=== PATIENT | female | born 1960 | race American Indian/Alaskan Native ===

== ENCOUNTER 2016-12-15 11:57 | Outpatient (CLI) | payer OTHER ==
--- NOTE | 2016-12-15 14:51 | XRay Report ---
PARANASAL SINUSES: History: Sinus congestion. Multiple views of the paranasal sinuses demonstrate normal formation with no abnormal mucoperiosteal thickening or fluid levels. The bony han are intact. IMPRESSION: Normal study.
--- NOTE | 2016-12-15 15:03 | XRay Report ---
CHEST 2 VIEWS INDICATION: Cough. COMPARISON: None similar. FINDINGS: PA and lateral chest radiographs demonstrate normal cardiomediastinal silhouette. Right hemidiaphragm slightly elevated with minimal right lung base crowded markings/atelectasis/scarring. No pleural effusions or CHF. Mild thoracic spine degenerative changes. CONCLUSION: No significant acute chest process, as described. Thank you for the opportunity to participate in this patient's care.
== END 2016-12-15 11:58 | disposition home or self-care (01) ==
LOC: SPVIMAG 11:57
PROVIDERS: ATTEND Internal Medicine Hematology & Oncology
DX: M47.894 Other spondylosis, thoracic region (principal); J98.11 Atelectasis; Q79.1 Other congenital malformations of diaphragm
CPT/HCPCS: 70220; 71020

== ENCOUNTER 2017-02-02 11:19 | Outpatient (CLI) | payer OTHER ==
--- NOTE | 2017-02-02 14:47 | Mammography Report ---
BONE DEXA:02/02/17 11:19:00 CLINICAL: Postmenopausal. No comparison. TECHNIQUE: Two site bone DEXA performed on an Hologic scanner. FINDINGS: The average BMD of the lumbar spine L1-L4 is 1.146g/cm squared with a T-score of 0 and a Z-score of +1.4. The average BMD of the left hip is 1.092g/cm squared with a T-score of +0.4 and a Z-score of +1.1. However, the femoral neck BMD BMD is 0.759g/cm squared with a T score of -1.3 and a Z score of -0.4 IMPRESSION: 1. WHO classification: Normal with average fracture risk based on lumbar spine measurements. 2. WHO classification: Osteopenia with increased fracture risk based on left femoral neck measurement. RECOMMENDATION: Clinical correlation and routine screening. DEFINITIONS: BMD = Bone Mineral Density T-score = BMD related to mean peak bone mass of young adult (mean expressed in Standard Deviation) Z-score = Age matched BMD expressed in SD World Health Organization (WHO) Diagnostic Criteria Normal T-score > -1 SD Osteopenia T-score between -1 and -2.4 SD Osteoporosis T-score -2.5 SD or below NOTE: BMD is not the only risk factor for fracture. One should also consider factors such as the patient's age, risk of falling, previous osteoporotic fracture, family history of osteoporotic fractures, current smoker, and low body weight. Z-scores are not calculated if >80 years of age.
== END 2017-02-02 11:20 | disposition home or self-care (01) ==
LOC: SPVWC 11:19
PROVIDERS: ATTEND Internal Medicine Hematology & Oncology
DX: M81.0 Age-related osteoporosis without current pathological fracture (principal); M85.88 Other specified disorders of bone density and structure, other site
CPT/HCPCS: 77080

== ENCOUNTER 2017-04-18 09:35 | Outpatient (CLI) | payer OTHER ==
--- NOTE | 2017-04-18 11:06 | Mammography Report ---
BILATERAL MAMMOGRAM with CAD: HISTORY: Cancer screening. No prior studies are available for comparison. FINDINGS: The breast tissue is heterogeneously dense, which could obscure detection of small masses (approximately 50%-75% glandular). No mass, distortion, suspicious calcification, or skin change is seen. IMPRESSION: Negative mammogram. There is no mammographic evidence of malignancy. RECOMMENDATION: Follow-up per ACS guidelines. BI-RADS CATEGORY: 1 = Negative ACR BI-RADS MAMMOGRAPHIC CODES: 0 = Needs additional imaging evaluation; 1 = Negative; 2 = Benign; 3 = Probably benign; 4 = Suspicious; 5 = Malignant; 6 = Known biopsy-proven malignancy COMMENT: 1. Dense breast tissue, i.e., adenosis, fibrocystic changes, etc., may obscure an underlying neoplasm. 2. Approximately 10% of cancers are not detected with mammography. 3. A negative mammography report should not delay biopsy if a clinically suspicious mass is present. COMMENT: Patient follow-up letters are generated in [employer].
== END 2017-04-18 09:36 | disposition home or self-care (01) ==
LOC: SPVWC 09:35
PROVIDERS: ATTEND Internal Medicine Hematology & Oncology
DX: Z12.31 Encounter for screening mammogram for malignant neoplasm of breast (principal)
CPT/HCPCS: 77067; G0202

== ENCOUNTER 2017-07-10 15:45 | Outpatient (CLI) | payer OTHER ==
--- NOTE | 2017-07-10 17:13 | XRay Report ---
PARANASAL SINUSES: History: Sinus congestion. Multiple views of the paranasal sinuses demonstrate normal formation with no abnormal mucoperiosteal thickening or fluid levels. The bony han are intact. IMPRESSION: Normal study. No change since 12/15/16.
== END 2017-07-10 15:46 | disposition home or self-care (01) ==
LOC: XRAY 15:45
PROVIDERS: ATTEND Internal Medicine Hematology & Oncology
DX: J06.9 Acute upper respiratory infection, unspecified (principal); J34.89 Other specified disorders of nose and nasal sinuses
CPT/HCPCS: 70220

== ENCOUNTER 2017-11-21 14:46 | Outpatient (CLI) | payer OTHER ==
--- NOTE | 2017-11-21 15:23 | XRay Report ---
XRAY CHEST TWO VIEWS: 11/21/17 14:46:00 CLINICAL: Cough. COMPARISON: 12/15/16 FINDINGS: Normal heart and pulmonary vasculature. The lungs are slightly underexpanded but clear. Degenerative changes in the thoracic spine. IMPRESSION: No acute cardiopulmonary process.
== END 2017-11-21 14:47 | disposition home or self-care (01) ==
LOC: SPVIMAG 14:46
PROVIDERS: ATTEND Internal Medicine Hematology & Oncology
DX: R05 Cough (principal); M47.894 Other spondylosis, thoracic region
CPT/HCPCS: 71046

== ENCOUNTER 2019-04-26 11:27 | Outpatient (CLI) | payer OTHER ==
--- NOTE | 2019-04-26 14:58 | Mammography Report ---
BILATERAL DIGITAL SCREENING MAMMOGRAM with CAD: 04/26/19 11:27:00 CLINICAL: Routine screening. COMPARISON:04/18/17 FINDINGS: The breasts are heterogeneously dense, which may obscure small masses. A right outer asymmetry on the CC view requires additional imaging.No architectural distortion or suspicious calcifications.The left breast is negative. IMPRESSION: Right asymmetry requiring further workup. BI-RADS CATEGORY: 0 -- Additional Imaging Evaluation Required RECOMMENDATION: Recall for right mediolateral and spot compression MLO and CC views and right breast ultrasound if needed. COMMENT: 1. Dense breast tissue, i.e., adenosis, fibrocystic changes, etc., may obscure an underlying neoplasm. 2. Approximately 10% of cancers are not detected with mammography. 3. A negative mammography report should not delay biopsy if a clinically suspicious mass is present. COMMENT: Patient follow-up letters are generated via our [employer] application.
== END 2019-04-26 11:28 | disposition home or self-care (01) ==
LOC: SPVWC 11:27
PROVIDERS: ATTEND Internal Medicine Hematology & Oncology
DX: Z12.31 Encounter for screening mammogram for malignant neoplasm of breast (principal)
CPT/HCPCS: 77067

== ENCOUNTER 2019-06-06 14:27 | Outpatient (CLI) | payer OTHER ==
--- NOTE | 2019-06-06 15:51 | Ultrasound Report ---
RIGHT DIAGNOSTIC MAMMOGRAM WITHOUT CAD AND RIGHT BREAST ULTRASOUND HISTORY: f/u abnormal mammogram COMPARISON: 04/26/2019 FINDINGS: Right Breast Mammogram: Additional mammographic views were performed and demonstrate partial effaceme nt of asymmetry on the MLO view and a persistent density on the lateral view. A CC spot is negative. . Right Breast Ultrasound: Sonographic evaluation of the upper outer right breast was performed and de monstrated no mass, cyst or shadowing to correlate with the mammographic density. IMPRESSION A probably benign right upper mammographic asymmetry with a negative ultrasound. Recommend 6 month fo llow-up right mammogram and ultrasound if needed. BIRADS 3: Probably benign. According to the [employer], yearly mammograms are recommended starting at age 40 and continuing as long as a woman is in good health. Clinical Breast Exams should be part of a period ic health exam-about every 3 years for women in their 20s and 30s and every year for women 40 and ove r. Breast self exam is an option for women starting in their 20s. Any breast change noted on a breast self exam should be reported promptly to the patient's healthcare provider. Breast MRI is recommende d for women with an approximately 20-25% or greater lifetime risk of breast cancer, including women w ith a strong family history of breast or ovarian cancer and women who have been treated for Hodgkin's disease. A negative Mammography report should not discourage follow up or biopsy of a clinically significant f inding and/or abnormality. Dense breast tissue may obscure small neoplasms. Signer Name: Kris Flaherty MD Signed: 06/06/2019 3:47 PM Workstation Name: [id number]
--- NOTE | 2019-06-06 15:57 | Mammography Report ---
RIGHT DIAGNOSTIC MAMMOGRAM WITHOUT CAD AND RIGHT BREAST ULTRASOUND HISTORY: f/u abnormal mammogram COMPARISON: 04/26/2019 FINDINGS: Right Breast Mammogram: Additional mammographic views were performed and demonstrate parti al effacement of asymmetry on the MLO view and a persistent density on the lateral view. A CC spot is negative. . Right Breast Ultrasound: Sonographic evaluation of the upper outer right breast was performed and demonstrated no mass, cyst or shadowing to correlate with the mammographic density. IMPRESSION A probably benign right upper mammographic asymmetry with a negative ultrasound. Recommend 6 month fo llow-up right mammogram and ultrasound if needed. BIRADS 3: Probably benign. According to the [employer], yearly mammograms are recommended starting at age 40 and continuing as long as a woman is in good health. Clinical Breast Exams should be part of a period ic health exam-about every 3 years for women in their 20s and 30s and every year for women 40 and ove r. Breast self exam is an option for women starting in their 20s. Any breast change noted on a breast self exam should be reported promptly to the patient's healthcare provider. Breast MRI is recommende d for women with an approximately 20-25% or greater lifetime risk of breast cancer, including women w ith a strong family history of breast or ovarian cancer and women who have been treated for Hodgkin's disease. A negative Mammography report should not discourage follow up or biopsy of a clinically significant f inding and/or abnormality. Dense breast tissue may obscure small neoplasms. Signer Name: Kris Flaherty MD Signed: 06/06/2019 3:53 PM Workstation Name: [id number]
== END 2019-06-06 14:28 | disposition home or self-care (01) ==
LOC: SPVWC 14:27
PROVIDERS: ATTEND Internal Medicine Hematology & Oncology
DX: R92.8 Other abnormal and inconclusive findings on diagnostic imaging of breast (principal)